=== PATIENT | male | born 1965 | race Caucasian/White ===

== ENCOUNTER 2019-06-29 13:56 | Emergency (ER) | payer OTHER ==
[~2019-06-29] VITALS: Ht 177.8 cm; Wt 94.3 kg
[2019-06-29] MEDS ORDERED: PENICILLIN V P500 MG PO (14:04)
[2019-06-29] MEDS ORDERED: OMEPRAZOLE20 M1 PO (14:13)
== END 2019-06-29 14:48 | disposition home or self-care (01) ==
LOC: ED 13:56
DX: T63.441A Toxic effect of venom of bees, accidental (unintentional), initial encounter (principal); I10 Essential (primary) hypertension; F17.200 Nicotine dependence, unspecified, uncomplicated; Z79.899 Other long term (current) drug therapy
CPT/HCPCS: 99282; J1100